=== PATIENT | male | born 1990 | race Two or more races ===

== ENCOUNTER 2017-06-20 20:52 | Emergency (ER) | payer SELFPAY ==
[~2017-06-20] VITALS: Ht 177.8 cm; Wt 95.3 kg
[2017-06-20 21:17] LABS: Basophils # (auto) 0.1 uL; Basophils % (auto) 0.6 % (0.0-2.0); CONDITION Y; Eosinophils # (auto) 0.6 uL; Eosinophils % (auto) 5.7 % (0.0-7.0); Hematocrit 48.9 % (41.0-53.0); Hemoglobin 16.6 g/dL (13.5-17.5); Lymphocytes # (auto) 2.9 uL; Lymphocytes % (auto) 29.2 % (10.0-50.0); Mean Corpuscular Hemoglobin 27.7 pg (28.0-32.0); Mean Corpuscular Hgb Conc. 33.9 g/dL (32.0-36.0); Mean Corpuscular Volume 81.7 fL (80.0-100.0); Monocytes # (auto) 0.9 uL; Monocytes % (auto) 8.7 % (0.0-12.0); Neutrophils # (auto) 5.5 uL; Neutrophils % (auto) 55.8 % (37.0-80.0); Platelet Count (auto) 263 10^3/uL (140-450); White Blood Cell 9.9 10^3/uL (4.4-10.8)
[2017-06-20 21:43] LABS: Anion Gap 9 (5-15); Aspartate Aminotransferase 12 U/L (15-37); BUN/Creatinine Ratio 12.7; Blood Urea Nitrogen 17 mg/dL (7-18); Calcium 8.6 mg/dL (8.5-10.1); Carbon Dioxide 25 mmol/L (21-32); Chloride 109 mmol/L (98-107); GFR African American 84 mL/min; GFR Non-African American 69 mL/min; Glucose 101 mg/dL (74-106); Magnesium 2.3 mg/dL (1.6-2.6); Potassium 4.1 mmol/L (3.5-5.1); Sodium 143 mmol/L (136-145)
[2017-06-20 21:47] LABS: Alkaline Phosphatase 124 U/L (45-117); Bilirubin, Total 0.6 mg/dL (0.2-1.0); Total Protein 7.8 g/dL (6.4-8.2)
[2017-06-21 01:45] VITALS: BP 154/90
== END 2017-06-21 02:34 | disposition home or self-care (01) ==
LOC: ER 20:55
DX: R07.89 Other chest pain (principal); R09.1 Pleurisy; E86.0 Dehydration
CPT/HCPCS: 36415; 71010; 80053; 83735; 84443; 84484; 85025; 93005

== ENCOUNTER 2017-07-19 08:34 | Emergency (ER) | payer SELFPAY ==
[~2017-07-19] VITALS: Ht 177.8 cm; Wt 95.3 kg
[2017-07-19 09:07] VITALS: BP 166/84
== END 2017-07-19 09:47 | disposition home or self-care (01) ==
LOC: ER 08:34
DX: L72.3 Sebaceous cyst (principal)

== ENCOUNTER 2019-05-02 18:49 | Emergency (ER) | payer MEDICAID ==
[~2019-05-02] VITALS: Ht 175.3 cm; Wt 86.2 kg
[2019-05-02] MEDS ORDERED: ACETAMINOPHEN 325 MG TAB PO ONE (19:15)
[2019-05-02 21:33] VITALS: BP 151/92
[2019-05-02] MEDS ORDERED: ACETAMINOPHEN/CODEINE#3 (300/30mg) TAB PO ONE (22:00)
[2019-05-02] MEDS ORDERED: cefTRIAXone SOD 1,000 MG VL IM ONE (22:00)
[2019-05-02] MEDS ORDERED: DexAMETHasone SOD PHOS 10MG/1ML VIAL INJ IM ONE (22:00)
== END 2019-05-02 22:30 | disposition home or self-care (01) ==
LOC: ER 18:49
DX: J06.9 Acute upper respiratory infection, unspecified (principal)
CPT/HCPCS: 96372; 99283; J0696; J1100

== ENCOUNTER 2019-05-12 04:46 | Emergency (ER) | payer MEDICAID ==
[~2019-05-12] VITALS: Ht 175.3 cm; Wt 90.7 kg
[2019-05-12 05:57] LABS: Acetaminophen < 2.0 ug/mL (10-30); Salicylate < 1.7 mg/dL (2.8-20.0)
[2019-05-12 05:59] LABS: Albumin 4.3 g/dL (3.4-5.0); Anion Gap 12 (5-15); Blood Alcohol < 3.0 mg/dL (0-5); Blood Urea Nitrogen 17 mg/dL (7-18); Calcium 9.4 mg/dL (8.5-10.1); Carbon Dioxide 20 mmol/L (21-32); Chloride 109 mmol/L (98-107); Glucose 118 mg/dL (74-106); Magnesium 2.4 mg/dL (1.6-2.6); Potassium 4.1 mmol/L (3.5-5.1); Sodium 141 mmol/L (136-145)
[2019-05-12 06:00] LABS: Basophils # (auto) 0.1 uL; Basophils % (auto) 0.8 % (0.0-2.0); Eosinophils # (auto) 0.1 uL; Eosinophils % (auto) 0.6 % (0.0-7.0); Hematocrit 46.4 % (41.0-53.0); Hemoglobin 15.7 g/dL (13.5-17.5); Lymphocytes # (auto) 1.6 uL; Lymphocytes % (auto) 14.8 % (10.0-50.0); Mean Corpuscular Hemoglobin 28.2 pg (28.0-32.0); Mean Corpuscular Hgb Conc. 33.9 g/dL (32.0-36.0); Mean Corpuscular Volume 83.1 fL (80.0-100.0); Monocytes # (auto) 0.7 uL; Monocytes % (auto) 6.3 % (0.0-12.0); Neutrophils # (auto) 8.5 uL; Neutrophils % (auto) 77.5 % (37.0-80.0); Nucleated Red Blood Cells % 0.2 %; Platelet Count (auto) 289 10^3/uL (140-450); Red Blood Cells 5.58 10^6/uL (4.5-5.90); Red Cell Distribution Width 15.2 % (11.8-14.3); White Blood Cell 10.9 10^3/uL (4.4-10.8)
[2019-05-12 06:03] LABS: Alanine Aminotransferase 36 U/L (16-61); Alkaline Phosphatase 95 U/L (45-117); Aspartate Aminotransferase 19 U/L (15-37); BUN/Creatinine Ratio 13.5; Bilirubin, Total 0.9 mg/dL (0.2-1.0); GFR African American 88 mL/min; GFR Non-African American 73 mL/min; Total Protein 8.3 g/dL (6.4-8.2)
[2019-05-12] MEDS ORDERED: SODIUM CHLORIDE 0.9% 1,000 ML IVB ONE (07:55)
[2019-05-12] MEDS ORDERED: LORazepam 2MG/ML-1ML VIAL IV ONE (08:00)
[2019-05-12 11:51] VITALS: BP 128/79
[2019-05-12 12:55] LABS: Urine Amorphous Crystal FEW /hpf (None Seen); Urine Bacteria NONE SEEN /hpf (None Seen); Urine Blood Negative /uL (Negative); Urine Mucus FEW (None Seen); Urine WBC 1 /hpf (0 - 3)
[2019-05-12 13:02] LABS: Alcohol, Urine < 3.0 mg/dL (0-5); Amphetamine Screen, Urine POSITIVE (NEGATIVE); Barbiturate Scree,Urine NEGATIVE (NEGATIVE); Benzodiazephine Screen, Urine NEGATIVE (NEGATIVE); Cannabinoid Screen, Urine POSITIVE (NEGATIVE); Cocaine Screen, Urine NEGATIVE (NEGATIVE); Opiate Scree,Urine NEGATIVE (NEGATIVE); Phencyclidine Screen, Urine NEGATIVE (NEGATIVE)
== END 2019-05-12 13:53 | disposition home or self-care (01) ==
LOC: ER 04:51
DX: F41.8 Other specified anxiety disorders (principal); I10 Essential (primary) hypertension; F15.10 Other stimulant abuse, uncomplicated; F12.10 Cannabis abuse, uncomplicated; J45.909 Unspecified asthma, uncomplicated
CPT/HCPCS: 36415; 71045; 80053; 80307; 80320; 80329; 81001; 83735; 85025; 93005; 94761; 96374; 99284; J2060; J7030

== ENCOUNTER 2020-05-26 15:43 | Emergency (ER) | payer MEDICAID ==
[~2020-05-26] VITALS: Ht 177.8 cm; Wt 102.1 kg
[2020-05-26 15:56] VITALS: BP 128/104
== END 2020-05-26 16:51 | disposition home or self-care (01) ==
LOC: ER 15:43
DX: U07.1 COVID-19 (principal); R06.02 Shortness of breath; F41.9 Anxiety disorder, unspecified
CPT/HCPCS: 71045

== ENCOUNTER 2022-06-29 22:22 | Emergency (ER) | payer MEDICAID ==
[~2022-06-29] VITALS: Ht 175.3 cm; Wt 100.0 kg
[2022-06-29] MEDS ORDERED: SODIUM CHLORIDE 0.9% 1,000 ML IV ONE (22:45)
[2022-06-29 23:38] LABS: Alcohol, Urine < 3.0 mg/dL (0-10); Amphetamine Screen, Urine POSITIVE (NEGATIVE); Barbiturate Scree,Urine NEGATIVE (NEGATIVE); Benzodiazephine Screen, Urine NEGATIVE (NEGATIVE); Cannabinoid Screen, Urine POSITIVE (NEGATIVE); Cocaine Screen, Urine NEGATIVE (NEGATIVE); Opiate Scree,Urine NEGATIVE (NEGATIVE)
[2022-06-29 23:43] LABS: Basophils # (auto) 0.1 10 ^3/uL (0-0.2); Lymphocytes # (auto) 2.4 10 ^3/uL (0.4-5.4); Monocytes # (auto) 0.8 10 ^3/uL (0-1.3); Nucleated Red Blood Cells % 0.1 %
[2022-06-29 23:45] LABS: Basophils % (auto) 0.7 % (0.0-2.0); Eosinophils # (auto) 0.2 10 ^3/uL (0-0.8); Eosinophils % (auto) 1.7 % (0.0-7.0); Hematocrit 52.4 % (41.0-53.0); Hemoglobin 17.2 g/dL (13.5-17.5); Lymphocytes % (auto) 25.2 % (10.0-50.0); Mean Corpuscular Hemoglobin 26.1 pg (28.0-32.0); Mean Corpuscular Hgb Conc. 32.7 g/dL (32.0-36.0); Mean Corpuscular Volume 79.8 fL (80.0-100.0); Monocytes % (auto) 8.9 % (0.0-12.0); Neutrophils % (auto) 63.5 % (37.0-80.0); Red Blood Cells 6.57 10^6/uL (4.5-5.90); Red Cell Distribution Width 14.6 % (11.8-14.3); White Blood Cell 9.5 10^3/uL (4.4-10.8)
[2022-06-30 00:02] LABS: Albumin 4.3 g/dL (3.4-5.0); BUN/Creatinine Ratio 13.1; Calcium 9.4 mg/dL (8.5-10.1); Magnesium 2.4 mg/dL (1.6-2.6); Potassium 3.5 mmol/L (3.5-5.1)
[2022-06-30 00:21] LABS: Phencyclidine Screen, Urine NEGATIVE (NEGATIVE)
[2022-06-30 00:27] LABS: Bilirubin, Total 0.8 mg/dL (0.2-1.0); Total Protein 8.5 g/dL (6.4-8.2)
[2022-06-30] MEDS ORDERED: SODIUM CHLORIDE 0.9% 1,000 ML IV ONE ×2 (00:45→02:45)
[2022-06-30 04:15] VITALS: BP 143/104
== END 2022-06-30 04:17 | disposition home or self-care (01) ==
LOC: ER 22:22
DX: R00.2 Palpitations (principal); R00.0 Tachycardia, unspecified; F19.10 Other psychoactive substance abuse, uncomplicated; F15.10 Other stimulant abuse, uncomplicated; I10 Essential (primary) hypertension; F10.10 Alcohol abuse, uncomplicated; F12.10 Cannabis abuse, uncomplicated; J45.909 Unspecified asthma, uncomplicated
CPT/HCPCS: 36415; 71045; 80053; 80307; 80320; 83605; 83735; 83880; 84484; 85025; 93005; 96360; 96361; 99285; J7030